=== PATIENT | male | born 1950 | race Caucasian/White ===

== ENCOUNTER 2016-10-10 16:10 | Inpatient (IN) ==
[2016-10-10 17:15] LABS: MANUAL DIFF NEEDED? NO
[2016-10-10 17:21] LABS: BASO% 0.3 % (0.0-0.8); EOS# 0.05 X1000 (0.0-0.7); EOS% 0.7 % (0.0-10.0); HEMATOCRIT 23.2 % (42.0-52.0); IMM GRAN# 0.05 X1000 (0.0-0.04); IMM GRAN% 0.7 % (0.0-0.5); LYMPH# 1.02 X1000 (1.2-3.4); LYMPH% 14.4 % (20.5-51.1); MCH 33.6 PG (27-31); MCHC 34.5 g/dL (33-37); MCV 97.5 FL (81-99); MONO# 0.84 X1000 (0.11-0.59); MONO% 11.9 % (1.7-9.3); MPV 11.6 FL (7.4-10.4); PLT 187 X1000 (130-400); RBC 2.38 XMIL (4.7-6.1)
[2016-10-10 17:35] LABS: INR 1.14 (0.86-1.15); PROTIME 14.9 Seconds (12.1-15.5); PTT PL 24.1 Seconds (22.6-43.9)
[2016-10-10] MEDS ORDERED: PROTONIX IV ONE (17:35)
[2016-10-10] MEDS ORDERED: SODIUM CHLORIDE 0.9% INJ ONE (17:35)
[2016-10-10] MEDS ORDERED: NS 1,000 ML IV ONE ×2 (17:39→18:42)
--- NOTE | 2016-10-10 17:39 | PROVIDER DOCUMENTATION ---
HPI-Abdominal Pain/GI Problem - General Chief Complaint: GI Bleed Stated Complaint: "PASSING BLOOD THROUGH STOOL" Time Seen by Provider: 10/10/16 17:03 Source: patient Allergies/Adverse Reactions: Patient Allergies Allergy/AdvReac Type Severity Reaction Status Date / Time Penicillins Allergy Intermediate SWELLING Verified 04/30/14 17:45 Home Medications: Home Medication List Medication Instructions Recorded Confirmed Last Taken Type Atorvastatin Calcium [Lipitor] 1 tab PO DAILY 04/30/14 04/30/14 1 Day Ago History Metoprolol [Lopressor] 50 mg PO BID 04/30/14 04/30/14 1 Day Ago History RAMIpril [Altace] 5 mg PO DAILY 04/30/14 04/30/14 1 Day Ago History Aspirin 81 mg PO DAILY 10/10/16 10/10/16 Unknown History Primidone [Mysoline] 50 mg PO DAILY 10/10/16 10/10/16 Unknown History - History of Present Illness-ABD Nature of Presenting Problems: Pt is a 65 y/o M c chief compliant of black stool that appears as it has in the past c a GI bleed. Pt has a known h/o GI bleeds secondary to gastric ulcers. He is followed by Dr. Spence (GI). Pt states that 2 weeks ago he pulled a muscle and was prescribed Mobic and a muscle relaxer. Pt states he has felt light headed. On arrival, pt is in minimal distress. Review of Systems - Adult - REVIEW OF SYSTEMS - ADULT Constitutional: reports: no symptoms reported. denies: chills, fatique Eyes: reports: no symptoms reported. denies: blurred vision, double vision Ears, Nose, Mouth & Throat: reports: no symptoms reported. denies: ear pain, nose pain Cardiovascular: reports: no symptoms reported. denies: chest pain, orthopnea Respiratory: reports: no symptoms reported. denies: cough, shortness of breath Gastrointestinal: reports: see HPI, diarrhea, rectal bleeding. denies: abdominal pain, nausea Genitourinary: reports: no symptoms reported. denies: dysuria, hematuria Musculoskeletal: reports: no symptoms reported. denies: joint pain, joint swelling Integumentary: reports: no symptoms reported. denies: hives, itching Neurological: reports: no symptoms reported. denies: numbness, paresthesia Psychiatric: reports: no symptoms reported. denies: anxiety, emotional problems Endocrine: reports: no symptoms reported. denies: cold intolerance, heat intolerance Hematologic/Lymphatic: reports: no symptoms reported. denies: blood clots, low blood count Allergic/Immunologic: reports: no symptoms reported. denies: allergic reactions , food allergy All Other Systems: Reviewed and Negative Past History - Adult - PAST MEDICAL HISTORY-ADULT Review of Records: reports: Old Records Reviewed, Nursing Assessment Review, Medications Reviewed, Social history reviewed & non-contributory. Major Childhood Illnesses: reports: denies history Cardiovascular: reports: CAD, HTN, hyperlipidemia Respiratory: reports: denies history Gastrointestinal: reports: GERD, GI bleed, ulcer Obstetrical/Gynecological: reports: denies history Genitourinary: reports: denies history Musculoskeletal: reports: denies history Neurological: reports: denies history Endocrine/Immune: reports: Diabetes Other Conditions: reports: denies history - PRIOR SURGERIES/PROCEDURES Surgical/Procedure History: reports: CABG, cholecystectomy, cardiac stent, gastric bypass, other (pilonidal cyst removed) - IMMUNIZATION STATUS Childhood Immunizations: UTD Flu Vaccine: NUTD - FAMILY HISTORY Family History: reviewed, not pertinent - SOCIAL HISTORY Smoking: denies Substance Use: none/never Alcohol Use Frequency: never Living Situation: family Physical Exam-General - PHYSICAL EXAM-ADULT Initial Vital Signs Reviewed: Yes - CONSTITUTIONAL General Appearance: alert, no apparent distress - EYES Eyes: PERRL/EOMI, pink conjunctivae - HEAD, EARS, NOSE, MOUTH & THROAT HENMT: normocephalic/atraumatic, moist mucous membranes, normal ENT inspection - NECK Neck: normal inspection - RESPIRATORY Respiratory: chest non-tender, lungs clear, normal breath sounds - CARDIOVASCULAR Cardiovascular: normal peripheral pulses, regular rate, rhythm - GASTROINTESTINAL (ABDOMEN) Abdominal Exam: normal bowel sounds, non tender, soft. negative: no organomegaly, no pulsatile mass, abdominal bruit, abnormal bowel sounds, distended, guarding, rigid, rebound, tenderness, hernia, mass, hepatomegaly, spleenomegaly, McBurney's point tenderness, Matos's sign, obturator sign, prominent aortic pulsations, psoas, Rovsing's sign - LYMPHATIC Lymphatic: no adenopathy - MUSCULOSKELETAL Back Exam: normal inspection, no CVA tenderness, no vertebral tenderness Extremity: normal range of motion, non-tender, normal inspection - SKIN Integumentary: normal color, normal turgor, warm/dry - NEUROLOGIC Neurologic: grossly normal, no motor/sensory deficits - PSYCHIATRIC Psych/Mental Status: normal mood/affect, normal thought content, normal thought process, oriented x 3 Progress - PLAN OF CARE/RESULTS Progress/Plan/Lab Results: Vital Signs - 8 hr 10/10/16 16:32 10/10/16 17:19 Temperature 98 F Pulse Rate 67 Pulse Rate [Sitting] 66 Pulse Rate [Standing] 72 Pulse Rate [Supine] 63 Respiratory Rate 18 Blood Pressure 105/63 Blood Pressure [Sitting] 117/71 Blood Pressure [Standing] 100/67 Blood Pressure [Supine] 120/73 O2 Sat by Pulse Oximetry 100 Laboratory Results - last 24 hr 10/10/16 10/10/16 17:00 17:00 WBC 7.07 RBC 2.38 L Hgb 8.0 L Hct 23.2 L MCV 97.5 MCH 33.6 H MCHC 34.5 RDW Std Deviation 12.1 Plt Count 187 MPV 11.6 H Immature Gran % (Auto) 0.7 H Neut % (Auto) 72.0 Lymph % (Auto) 14.4 L Whiteside % (Auto) 11.9 H Eos % (Auto) 0.7 Baso % (Auto) 0.3 Immature Gran # (Auto) 0.05 H Neut # (Auto) 5.09 Lymph # (Auto) 1.02 L Whiteside # (Auto) 0.84 H Eos # (Auto) 0.05 Baso # (Auto) 0.02 PT 14.9 INR 1.14 Orders Category Date Time Status Saline Loc DIRECTED Care 10/10/16 16:29 Active CBC WITH ELECTRONIC DIFF [HEME] Stat Lab 10/10/16 17:00 Completed COMPREHENSIVE METABOLIC PANEL [CHEM] Stat Lab 10/10/16 17:00 Received OCCULT BLOOD SCREEN STOOL PL Stat Lab 10/10/16 16:29 Uncollected PROTIME WITH INR PL [COAG] Stat Lab 10/10/16 17:[address] [COAG] Stat Lab 10/10/16 17:00 Results TYPE & SCREEN [BBK] Stat Lab 10/10/16 17:00 Received Pantoprazole [Protonix] Med 10/10/16 17:35 Once 40 mg IV NOW ONE Sodium Chloride 0.9% Med 10/10/16 17:35 Once 10 ml INJ NOW ONE Result Diagrams: 06/16/17 17:00 10/10/16 17:00 - CONSULTS/PCP/HOSPITALIST Notification #1 *Consult/PCP/Hospitalist*: Dr. Angeles (GI) Time Discussed: 18:33 Reason/Comments: Admit to [facility], ICU #2 Consult: Eleazar Ellis ([place] Hospitalist) / Dr. Marx ([place] Hospitalist) Time Discussed: 18:40 Reason/Comments: Will accept pt for the ICU. Departure - Departure Date of Disposition Decision: 10/10/16 Time of Disposition Decision: 18:34 DIAGNOSIS: GI bleed due to NSAIDs NSAID induced gastritis Qualifiers: Encounter type: initial encounter Injury intent: accidental or unintentional Qualified Code(s): T39.391A - Poisoning by other nonsteroidal anti-inflammatory drugs [NSAID], accidental (unintentional), initial encounter Disposition: ADMITTED INPATIENT 09 Certified Medical Emergency: Emergent Condition: Stable Referrals and Follow-Ups: None,PCP [Primary Care Provider] - - Critical Care Note This patient required my direct & personal management of CC.: No Attestation - Physician/ FANNY Attestation Patient care was provided by Advanced Practice Provider:: Yes Advanced Practice Provider:: Alec Maria Advanced Practice Provider documentation review:: The Mid-level provider documentation, treatment plan and medical decision making was reviewed by the physician who agrees with all treatment and medical decision making by the MLP.
[2016-10-10 17:49] LABS: AGAP 17; ALBUMIN 4.2 g/dL (3.5-5.0); ALKALINE PHOSPHATASE 63 U/L (32-122); BUN 59 mg/dL (8-22); CALCIUM 9.3 mg/dL (8.8-10.2); CHLORIDE 93 mmol/L (98-107); COSMO 276; GOT 22 U/L (10-34); GPT 13 U/L (10-44); POTASSIUM 4.7 mmol/L (3.5-5.1); SODIUM 128 mmol/L (136-145); TCO2 18 mmol/L (25-35); TOTAL BILIRUBIN < 0.15 mg/dL (0.20-1.00); TOTAL PROTEIN 6.8 g/dL (6.3-8.3)
[2016-10-10 18:24] LABS: OCCULT BLOOD 1 POSITIVE (NEGATIVE)
[2016-10-10] MEDS ORDERED: PROTONIX 80 MG in NS 80 ML IV SCH (18:32)
[2016-10-10 19:56] LABS: HEMATOCRIT 21.6 % (42.0-52.0); HEMOGLOBIN 7.4 g/dL (14.0-18.0)
[2016-10-10] MEDS ORDERED: ZOFRAN IV PRN (21:32)
--- NOTE | 2016-10-10 21:54 | HISTORY AND PHYSICAL ---
CHIEF COMPLAINT: Dark stools for 3 days. PRIMARY CARE PHYSICIANS: Dr. Sourav Singh. HISTORY OF PRESENTING ILLNESS: A 65-year-old male with a history of hypertension, coronary artery disease, hyperlipidemia, peptic ulcer disease who initially presented to [place] emergency department with complaint of dark tarry stools for the past 3 days. He states that he was getting weak at times. He was evaluated in the ER, he was found to be anemic and it was suspected possibly he had an upper GI bleed. Due to lack of subspecialty care, patient was transferred to [facility] ICU for further evaluation, management. At the time of my examination, he denied any headache, vision changes, fevers, chills, chest pain, shortness of breath, hemoptysis or weight changes. States he feels okay now. PAST MEDICAL HISTORY: Includes hypertension, hyperlipidemia, coronary disease, peptic ulcer disease. PAST SURGICAL HISTORY: Coronary bypass, coronary stenting, cholecystectomy. ALLERGIES: Penicillin. CURRENT MEDICATIONS: As listed in the MAR. SOCIAL HISTORY: He is a former smoker. History of alcohol use daily in moderate amount. Denies any illicit drug use. FAMILY HISTORY: Positive for coronary disease in mother and father. REVIEW OF SYSTEMS: Twelve point systems listed as in HPI. Other systems negative. PHYSICAL EXAMINATION: GENERAL: Cooperative, friendly male. He is resting comfortably now. VITAL SIGNS: Temperature 98.0 degrees, pulse 60, respiration 21, blood pressure 140/75, he is saturating 100%. HEENT: Atraumatic, normocephalic. Extraocular movements intact. PERRLA. NECK: Supple. CHEST: Clear to auscultation. CARDIOVASCULAR: Regular rate, rhythm. ABDOMEN: Soft, nontender. Positive bowel sounds. EXTREMITIES: No edema. NEURO: He is awake, alert, oriented x3. : No bladder distention. SKIN: Warm. LABORATORIES AND STUDIES: WBC 7.07, hemoglobin 8.0, hematocrit 23.2, platelets 187,000. Sodium 128, potassium 4.7, chloride 93, CO2 is 18, BUN is 59, creatinine is 1.7, glucose is 143. ASSESSMENT: A 65-year-old male with a history of hypertension, hyperlipidemia, coronary disease, and peptic ulcer disease had presented initially to [place] emergency department with complaint of dark tarry stools for 3 days. He was subsequently transferred to [facility] due to lack of subspecialty care there. The patient will need further GI evaluation. 1. Suspected upper gastrointestinal bleed. 2. History of coronary artery disease. 3. Hyperlipidemia. 4. Hyponatremia. 5. Acute kidney injury. 6. Hypertension. PLAN: 1. We will admit patient to ICU. 2. We will keep patient NPO. 3. Continue with IV fluids. 4. We will type and cross and transfuse 2 units. 5. We will put patient on Protonix drip. 6. We will monitor electrolytes including sodium. 7. We will monitor his renal function. 8. Monitor blood pressure closely. 9. Put patient on DVT prophylaxis with SCD. 10. We will continue to follow and reassess. cc: Ever Marx MD
[2016-10-11] MEDS ORDERED: ZOFRAN IV PRN (04:17)
[2016-10-11] MEDS: PROTONIX 80 MG in NS 80 ML IV SCH ×2 (04:52→16:31)
[2016-10-11] MEDS ORDERED: NS 1,000 ML IV ONE ×2 (05:00→11:28)
[2016-10-11 05:37] LABS: MANUAL DIFF NEEDED? NO
[2016-10-11 06:00] LABS: BASO% 0.2 % (0.0-0.8); EOS# 0.07 X1000 (0.0-0.7); EOS% 1.5 % (0.0-10.0); HEMATOCRIT 25.9 % (42.0-52.0); HEMOGLOBIN 8.5 g/dL (14.0-18.0); IMM GRAN# 0.02 X1000 (0.0-0.04); IMM GRAN% 0.4 % (0.0-0.5); LYMPH# 1.31 X1000 (1.2-3.4); LYMPH% 28.1 % (20.5-51.1); MCH 31.5 PG (27-31); MCHC 32.8 g/dL (33-37); MCV 95.9 FL (81-99); MONO# 0.66 X1000 (0.11-0.59); MONO% 14.1 % (1.7-9.3); NEUT% 55.7 % (42.2-75.2); PLT 155 X1000 (130-400)
[2016-10-11 06:33] LABS: AGAP 15; BUN 32 mg/dL (8-22); CALCIUM 8.5 mg/dL (8.8-10.2); CHLORIDE 105 mmol/L (98-107); COSMO 285; POTASSIUM 4.2 mmol/L (3.5-5.1); SODIUM 139 mmol/L (136-145); TCO2 19 mmol/L (25-35)
[2016-10-11 12:06] LABS: HEMATOCRIT 29.9 % (42.0-52.0); HEMOGLOBIN 10.1 g/dL (14.0-18.0)
--- NOTE | 2016-10-11 13:30 | PROGRESS NOTE ---
DATE: 10/11/2016 SUBJECTIVE: The patient is doing well. He is still having loose tarry stool. No fever. No chills. No nausea, vomiting, or diarrhea. No lightheadedness. Vital signs: Blood pressure 99/65, pulse of 66, respirations 98.6 degrees, sat of 99% on 2 L nasal cannula. General appearance: Thin, white male, in no acute distress. HEENT: Anicteric. Clear conjunctivae. Neck: Supple. No JVD. No bruit. Cardiovascular: S1, S2. Normal rate and rhythm. No murmur, rub, or gallops. Pulmonary: Clear to auscultation bilaterally. GI: Soft, nontender, nondistended. Normoactive bowel sounds. Musculoskeletal: No clubbing, cyanosis, or edema. LABORATORY: His white count is 4.67, hemoglobin 8.5, hematocrit 25.9 after 2 units, platelets 155,000. Chemistry: Sodium 139, potassium 4.2, chloride 102, bicarb 19, BUN 32, creatinine 1.0, glucose 100. ASSESSMENT/PLAN: This is a 65-year-old white male, admitted to the hospital for melena. 1. Melena. Most likely, secondary to upper GI bleed. The patient has a history of peptic ulcer disease. We will keep the patient on Protonix drips for now. We will continue IV fluid. Will increase it to 125 mL/h. Seeing the patient has been hypotensive we will hold his blood pressure medications. 2. Anemia secondary to acute blood loss. Continue to check his hemoglobin and hematocrit and will transfuse as needed to keep his has hemoglobin and hematocrit above 7 and 21. GI is following. His risk factor was taking NSAIDs over the counter. 1. Hyperlipidemia. We will resume his Lipitor once able to take p.o. again. 2. Deep vein thrombosis prophylaxis. Put the patient on SCDs for now. CODE STATUS: The patient is a full code.
--- NOTE | 2016-10-11 18:26 | CONSULTATION ---
DATE OF CONSULTATION: 10/11/2016 PRIMARY CARE PROVIDER: Sourav Singh M.D. PRIMARY HOSPITALIST: Bonilla Cummings M.D. REFERRING PHYSICIAN: Ever Marx M.D. PRIMARY DRILLING PLANT OPERATOR: Dr. Avinash Morales M.D. INDICATION FOR CONSULTATION: 1. Melena. 2. History of peptic ulcer disease. HISTORY OF PRESENT ILLNESS: The patient is a 65-year-old white male who has a history of peptic ulcer disease, hypertension, coronary artery disease and hyperlipidemia. He states that he was recently treated by Dr. Avinash Morales for a gastric ulcer. He injured his back and was seen by a free standing medical clinic where he was placed on Mobic for pain control. He was on Mobic for a few days when he began having melenic stools. He reports that he presented to the emergency room when he became too weak to stand. In the emergency room on rectal exam he had a large volume melenic bowel movement. He denies other symptoms stating that he is ready to eat and ready to go home. PAST MEDICAL HISTORY: 1. Hypertension. 2. Hyperlipidemia. 3. Coronary artery disease. 4. Peptic ulcer disease. 5. NSAID use. PAST SURGICAL HISTORY: 1. Coronary artery bypass. 2. Coronary stenting. 3. Cholecystectomy. MEDICATION ALLERGIES: Penicillin. HOME MEDICATIONS: 1. Aspirin. 2. Primidone. 3. Ramipril. 4. Metoprolol. 5. Atorvastatin. 6. Mobic. SOCIAL HISTORY: The patient is a former smoker. He drinks alcohol on a daily basis but denies illicit drug use. He is rather evasive when trying to determine the quantity of alcohol intake. FAMILY HISTORY: Positive for coronary artery disease in both parents. REVIEW OF SYSTEMS: The patient states that he feels fine and wants to go home and have his EGD done as an outpatient. However, after discussion with his son, nursing staff and the hospitalist service, he has agreed to stay until Thursday. Since admission, he reports feeling better with less fatigue. His diarrhea volume has decreased from multiple bowel movements per day to 1 bowel movement. He is currently on a Protonix drip. PHYSICAL EXAM: General: White male in no acute distress. Vital Signs: His blood pressure is 99/65, pulse 66, respirations 16, temperature of 98.6 degrees. HEENT: Negative for jaundice. His conjunctivae are pale. His oropharyngeal mucosa membranes are unremarkable. Pulmonary: His lungs are clear to auscultation with normal respiratory effort. Cardiovascular Exam: Reveals regular rate and rhythm with no murmurs, gallops, or rubs. Abdominal Exam: Reveals normoactive bowel sounds. The abdomen is soft, nontender with no rebound or guarding. Extremities: Bilaterally are negative for cyanosis, clubbing, or edema. Neurologic: He is alert and oriented x3. OBJECTIVE DATA: Remarkable for hemoglobin on admission of 7.4 with hematocrit of 21.6 and white count of 7.03. On admission he had 187,000 platelets. Posttransfusion his hemoglobin is 10.1 with hematocrit of 29.9 and a white count of 4.67. He has 155,000 platelets. Sodium is 139, potassium 4.2, chloride 105, CO2 19, BUN 32, creatinine 1.0 with a glucose of 100. His calcium is 8.5. On admission, his liver function tests were normal. IMPRESSION: 1. Melena. 2. Nonsteroidal anti-inflammatory drug use. 3. Known history of peptic ulcer disease. 4. Anemia. RECOMMENDATION: 1. Continue Protonix drip as discussed with the hospitalist service. 2. Transfuse as indicated. 3. He will need EGD. I will defer to Dr. Aviansh Morales with regard to scheduling. 4. I will place him on the schedule for Dr. Morales to perform his EGD on Thursday. 5. He may have a clear liquid diet. I would not advance his diet beyond clear liquids until he has had endoscopic evaluation. 6. Dr. Morales will assume care on Thursday. cc: Avinash Morales MD [facility]
[2016-10-11] MEDS: CARAFATE LIQUID PO SCH (20:05)
[2016-10-12] MEDS: PROTONIX 80 MG in NS 80 ML IV SCH ×3 (01:21→20:39)
[2016-10-12] MEDS: CARAFATE LIQUID PO SCH ×4 (02:00→20:39)
[2016-10-12 03:40] LABS: MANUAL DIFF NEEDED? NO
[2016-10-12 03:56] LABS: BASO% 0.1 % (0.0-0.8); EOS# 0.03 X1000 (0.0-0.7); EOS% 0.4 % (0.0-10.0); HEMATOCRIT 24.5 % (42.0-52.0); HEMOGLOBIN 8.1 g/dL (14.0-18.0); IMM GRAN# 0.04 X1000 (0.0-0.04); IMM GRAN% 0.6 % (0.0-0.5); LYMPH# 1.39 X1000 (1.2-3.4); LYMPH% 19.9 % (20.5-51.1); MCH 32.1 PG (27-31); MCHC 33.1 g/dL (33-37); MCV 97.2 FL (81-99); MONO# 0.81 X1000 (0.11-0.59); MONO% 11.6 % (1.7-9.3); MPV 11.7 FL (7.4-10.4); NEUT% 67.4 % (42.2-75.2); PLT 166 X1000 (130-400); RBC 2.52 XMIL (4.7-6.1)
[2016-10-12 04:29] LABS: AGAP 14; BUN 37 mg/dL (8-22); CALCIUM 8.3 mg/dL (8.8-10.2); CHLORIDE 112 mmol/L (98-107); COSMO 301; POTASSIUM 5.1 mmol/L (3.5-5.1); SODIUM 146 mmol/L (136-145); TCO2 20 mmol/L (25-35)
--- NOTE | 2016-10-12 08:28 | PROGRESS NOTE ---
DATE: 10/12/2016 SUBJECTIVE: The patient had nausea and vomiting all night last night but none this morning. He has mild abdominal discomfort. No bowel movement. No melena overnight. PHYSICAL EXAMINATION: Vital Signs: Blood pressure is 142/81, pulse of 105, respirations 23, temperature of 97.5 degrees, saturation of 96% on room air. General Appearance: Thin, white male, in moderate distress. HEENT: Anicteric sclerae. Clear conjunctivae. Neck: Supple. No JVD. No bruit. Cardiovascular: S1 and S2. Normal rate and rhythm. No murmur, rubs, or gallops. Pulmonary: Clear to auscultation bilaterally. GI: Soft, nontender, nondistended. Normoactive bowel sounds. Musculoskeletal: No clubbing, cyanosis, or edema. LABORATORY: Today, his white count is 6.98, hemoglobin 8.1, hematocrit of 24.5, platelets of 166,000. Chemistry: Sodium 146, potassium 5.1, chloride 112, bicarb 20, BUN 37, creatinine 0.7, glucose of 128. ASSESSMENT AND PLAN: This is a 65-year-old, white male admitted to the hospital for melena. He has a history of peptic ulcer disease. 1. Melena, probably secondary to upper gastrointestinal bleed. We will monitor his hemoglobin and hematocrit every 8 hours, and we will transfuse as needed. We will keep the patient in the intensive care unit. He is on a Protonix drip. Gastroenterology saw the patient and recommended an EGD tomorrow. Keep the patient on a clear liquid diet for now. 2. Hypertension and tachycardia. Put him back on his Lopressor. Keep the patient on intravenous fluid. We will continue to monitor the patient. 3. Anemia due to acute blood loss. Transfuse as needed. 4. Code status. The patient is a full code.
[2016-10-12] MEDS: LOPRESSOR PO SCH ×2 (08:31→20:39)
[2016-10-12] MEDS: NS 1,000 ML IV SCH ×2 (08:32→14:34)
[2016-10-12 12:05] LABS: HEMATOCRIT 21.8 % (42.0-52.0); HEMOGLOBIN 7.2 g/dL (14.0-18.0)
--- NOTE | 2016-10-12 21:42 | PROGRESS NOTE ---
DATE: 10/12/2016 SUBJECTIVE: The patient had nausea and vomiting overnight. He is anxious to undergo an EGD. He reports resolution of the melena and currently has had no bowel movements today. His abdominal pain is significantly better since he has been placed on a Protonix drip and Carafate. OBJECTIVE: His blood pressure is 148/88, pulse is 75, respiration 18, temperature of 98.2 degrees. His abdomen is soft with minimal tenderness in the epigastrium. OBJECTIVE DATA: Reveals a hemoglobin of 8.1 with hematocrit of 25.4 and a white count of 6.98. His platelet count is 166,000. His sodium is 146, potassium 5.1, chloride 112, CO2 20, BUN 37, creatinine 0.7, glucose of 128 and calcium of 8.3. IMPRESSION: 1. Melena. 2. Nonsteroidal anti-inflammatory drug use. 3. History of peptic ulcer disease. 4. Anemia. RECOMMENDATION: 1. Patient is on the schedule for an EGD by Dr. Avinash Morales or Dr. Eleazar Rod. 2. Continue Protonix drip as you are doing. 3. Continue Carafate suspension as you are doing. 4. Transfuse as indicated. 5. Dr. Rod or Carmen will assume care in the morning. cc: Eleazar Rod MD
[2016-10-13 00:13] LABS: HEMATOCRIT 26.7 % (42.0-52.0); HEMOGLOBIN 8.9 g/dL (14.0-18.0)
[2016-10-13] MEDS: NS 1,000 ML IV SCH ×3 (00:46→17:58)
[2016-10-13] MEDS: CARAFATE LIQUID PO SCH ×4 (02:01→20:02)
[2016-10-13 04:07] LABS: HEMATOCRIT 25.3 % (42.0-52.0); HEMOGLOBIN 8.4 g/dL (14.0-18.0)
[2016-10-13 06:10] LABS: BASO% 0.4 % (0.0-0.8); EOS# 0.14 X1000 (0.0-0.7); EOS% 2.6 % (0.0-10.0); HEMATOCRIT 24.8 % (42.0-52.0); LYMPH# 1.24 X1000 (1.2-3.4); LYMPH% 23.4 % (20.5-51.1); MCH 30.5 PG (27-31); MCHC 32.3 g/dL (33-37); MCV 94.7 FL (81-99); MONO# 0.63 X1000 (0.11-0.59); MONO% 11.9 % (1.7-9.3); MPV 11.3 FL (7.4-10.4); NEUT% 61.7 % (42.2-75.2); PLT 114 X1000 (130-400); RBC 2.62 XMIL (4.7-6.1)
[2016-10-13 06:17] LABS: AGAP 10; BUN 18 mg/dL (8-22); CALCIUM 6.8 mg/dL (8.8-10.2); CHLORIDE 116 mmol/L (98-107); COSMO 286; POTASSIUM 3.4 mmol/L (3.5-5.1); SODIUM 143 mmol/L (136-145); TCO2 17 mmol/L (25-35)
--- NOTE | 2016-10-13 06:49 | EKG Report ---
Test Performed on : 10/11/2016 11:04:28 PM Test Reason : ELEVATED HR, Blood Pressure : / mmHG Vent. Rate : 099 BPM Atrial Rate : 099 BPM P-R Int : 146 ms QRS Dur : 076 ms QT Int : 338 ms P-R-T Axes : 029 022 056 degrees QTc Int : 433 ms Normal sinus rhythm. Nonspecific ST abnormality Abnormal ECG When compared with ECG of 30-APR-2014 17:19, ST now depressed in Anterolateral leads Confirmed by Frandy GARCIA, Mika Reynoso ([id number]) on 10/21/2016 2:12:57 PM
[2016-10-13] MEDS ORDERED: CALCIUM GLUCONATE 1 GM in NS 50 ML IV ONE (07:27)
[2016-10-13 09:03] LABS: INR 1.04; PTT 22.7 Seconds (22.0-36.0)
[2016-10-13] MEDS ORDERED: EPINEPHRINE SYRINGE ONE (09:26)
[2016-10-13] MEDS ORDERED: DIPRIVAN 1% ONE ×2 (09:55→09:56)
[2016-10-13 10:50] LABS: MANUAL DIFF NEEDED? NO
[2016-10-13 11:20] LABS: BASO% 0.3 % (0.0-0.8); EOS# 0.14 X1000 (0.0-0.7); EOS% 1.8 % (0.0-10.0); HEMATOCRIT 25.9 % (42.0-52.0); HEMOGLOBIN 8.6 g/dL (14.0-18.0); IMM GRAN# 0.02 X1000 (0.0-0.04); IMM GRAN% 0.3 % (0.0-0.5); LYMPH# 1.07 X1000 (1.2-3.4); LYMPH% 14.1 % (20.5-51.1); MCH 30.3 PG (27-31); MCHC 33.2 g/dL (33-37); MCV 91.2 FL (81-99); MONO# 0.65 X1000 (0.11-0.59); MONO% 8.6 % (1.7-9.3); MPV 11.2 FL (7.4-10.4); NEUT% 74.9 % (42.2-75.2); PLT 129 X1000 (130-400); RBC 2.84 XMIL (4.7-6.1)
[2016-10-13] MEDS: PROTONIX 80 MG in NS 80 ML IV SCH ×2 (11:36→17:58)
--- NOTE | 2016-10-13 11:38 | OPERATIVE NOTE ---
PROCEDURE DATE: 10/13/2016 REFERRING PHYSICIAN: Shan Leary MD PRIMARY PHYSICIAN: Sourav Singh MD PREOPERATIVE DIAGNOSES: 1. Gastrointestinal bleed and melena, going on for the last 3 days. He required 4 units of blood transfusion over the weekend. 2. Continues to be anemic with hematocrit drop to 21%. 3. History of use of aspirin at home for prophylaxis. 4. History of use of nonsteroidal anti-inflammatory drugs like chronic Aspirin for CAD and Mobic for back pain. 5. Previous history of peptic ulcer disease. POSTOPERATIVE DIAGNOSES: 1. Esophagitis, gastroesophageal junction. 2. Z-line visualized at 36 cm. 3. Evidence of hiatal hernia, 3 cm, sliding type. 4. Evidence of fresh and old blood in the entire stomach, which was suctioned out. There were some clots in the stomach, which could not be completely cleared. The stomach revealed a normal fundus, cardia, and incisura. There was evidence of gastritis in the antrum. 5. Evidence of a large clot in the duodenal bulb, which was cleared and there was evidence of ulcer at the apex of the duodenal bulb with a visible vessel. This was treated with epinephrine 2.5 mL in 3 quadrants, followed by black wire cautery. 6. Normal second portion of duodenum with some fresh and old blood noted in the second portion of the duodenum. PROCEDURE PERFORMED: Esophagogastroscopy with hemostasis. PROVIDER: Eleazar Rod MD ESTIMATED BLOOD LOSS: About 5 mL. SPECIMENS: None. DESCRIPTION OF PROCEDURE: After informed consent from the patient, explaining the risks, benefits, indications, and alternatives, the patient was prepared for EGD. The risks of the procedure include infection, bleeding, pain, trauma to the surrounding structures, perforation, and , were explained to the patient, among others. He acknowledged understanding and agreed to proceed with the procedure. The patient was brought to the OR. He was turned into the left lateral position. A bite block was placed in the patient's mouth. After adequate monitored anesthesia care, the upper scope was gently introduced through the oral vestibule all the way to the second portion of the duodenum. The esophagus was normal in the proximal and middle thirds. The distal esophagus showed evidence of Z-line at 36 cm and evidence of esophagitis at the GE junction. There was evidence of a 3 cm sliding hiatal hernia. The stomach showed evidence of fresh and old blood with clots, which was cleared out to the best possible ability. Some clots could not be cleared. There was evidence of underlying gastritis in the gastric antrum. Retroflexion revealed normal fundus, cardia, and incisura. There was no evidence of any gastric varices or esophageal varices. The duodenal bulb showed evidence of a large clot, which was removed, and there was evidence of an ulcer at the apex of the duodenal bulb with a visible vessel. It also measured about 1 to 1.5 cm. This was treated with epinephrine in 2 and 3 quadrants, followed by black wire cautery. The second portion of the duodenum appeared normal. There was also some evidence of fresh and old blood. The air was aspirated as the scope was withdrawn. The patient is currently being monitored in the OR in stable condition. I discussed the findings with the patient on waking up. RECOMMENDATIONS: 1. The patient will be on Protonix drip for 72 hours. 2. The patient will be on Carafate 1 g every 6 hours for 6 weeks. 3. The patient will avoid any NSAIDs like aspirin and Mobic for now until hematocrit stabilizes. 4. The patient has been losing blood and he has a large ulcer, we will give him 2 units of blood transfusion today. 5. If the patient's hematocrit continues to drop, we will schedule him for EGD tomorrow for a second look. 6. The patient will continue n.p.o. except for ice chips until his hematocrit stabilizes. We also called a surgical consult with Dr. Haynes, whom I called in the OR to look at the ulcer just in case he needs some kind of surgery. 7. Further recommendations pending above. cc: MD Shan Oneal MD David Francis, MD [facility]
[2016-10-13] MEDS: LOPRESSOR PO SCH ×2 (12:44→21:24)
--- NOTE | 2016-10-13 12:56 | PROGRESS NOTE ---
DATE: 10/13/2016 SUBJECTIVE: Patient is resting comfortable in bed. As per family who is at the bedside, no complaints. No melena overnight. OBJECTIVE: Vital Signs: Temperature 98 degrees, heart rate 64, respiratory 15, blood pressure 146/82. O2 saturation 100% on room air. General examination: This is a 65-year-old male, lying in bed, in no acute distress. HEENT: Head is normocephalic, atraumatic. Anicteric sclerae and pale conjunctivae. Mucous membranes moist. Neck: Supple. No JVD noted. No carotid bruits. No lymphadenopathy. No thyromegaly. Cardiovascular: S1, S2 heard. No murmurs, gallops, or rubs. Regular rate and rhythm. Respiratory: Clear bilaterally to auscultation. No work of breathing or using accessory muscles. Abdomen: Soft, nontender to palpation. Nondistended. Bowel sounds present. No organomegaly. Extremities: No clubbing, cyanosis, or edema. Peripheral pulses present in both legs. Patient moves 4 extremities. LABORATORY DATA: White cell count hemoglobin 8.6, hematocrit 25.9. BMP shows calcium 6.8, and then potassium 3.4. ASSESSMENT AND PLAN: 1. Gastrointestinal bleeding. 2. Hypertension. 3. Anemia due to acute blood loss. 4. Code status. Full code. 5. The patient has been taken to the OR today where they found a large clot in the duodenal bowel and also evidence of fresh and old blood clot in her stoma. At this time, we plan to keep this patient in the unit because of high risk of bleeding. The patient is going to get 2 units of blood. In total, he has received 6 units of blood. If this patient continues to bleed, probably will need surgical consultation. Dr. Rod has already talked with Dr. Haynes regarding this problem. At this time we are going to continue checking hemoglobin and hematocrit every 6 hours. We will check also BMP. 6. For hypertension, we will continue with home medications. 7. Code status. Full code. cc: Poncho Donohue MD
[2016-10-13] MEDS ORDERED: VITAMIN K 10 MG in NS 50 ML IV ONE (13:06)
[2016-10-13] MEDS: M.V.I.-12 10 ML, FOLIC ACID 1 MG, MAGNESIUM SULFATE 1 GM, THIAMINE 100 MG in NS 1,000 ML IV SCH (13:57)
[2016-10-13 18:28] LABS: MANUAL DIFF NEEDED? NO
[2016-10-13] MEDS ORDERED: PROTONIX IV SCH ×2 (18:32)
[2016-10-13 18:41] LABS: BASO% 0.2 % (0.0-0.8); EOS# 0.12 X1000 (0.0-0.7); EOS% 1.9 % (0.0-10.0); HEMATOCRIT 31.1 % (42.0-52.0); HEMOGLOBIN 10.6 g/dL (14.0-18.0); IMM GRAN# 0.04 X1000 (0.0-0.04); IMM GRAN% 0.6 % (0.0-0.5); LYMPH# 1.17 X1000 (1.2-3.4); LYMPH% 18.8 % (20.5-51.1); MCH 29.9 PG (27-31); MCHC 34.1 g/dL (33-37); MCV 87.9 FL (81-99); MONO# 0.55 X1000 (0.11-0.59); MONO% 8.8 % (1.7-9.3); MPV 11.1 FL (7.4-10.4); NEUT% 69.7 % (42.2-75.2); PLT 120 X1000 (130-400); RBC 3.54 XMIL (4.7-6.1)
[2016-10-13] MEDS: ICAR-C PO SCH (21:24)
[2016-10-13 21:55] LABS: MANUAL DIFF NEEDED? NO
[2016-10-13 21:57] LABS: BASO% 0.1 % (0.0-0.8); EOS# 0.16 X1000 (0.0-0.7); EOS% 2.1 % (0.0-10.0); HEMATOCRIT 29.8 % (42.0-52.0); HEMOGLOBIN 10.3 g/dL (14.0-18.0); IMM GRAN# 0.03 X1000 (0.0-0.04); IMM GRAN% 0.4 % (0.0-0.5); LYMPH# 1.64 X1000 (1.2-3.4); LYMPH% 21.4 % (20.5-51.1); MCH 30.2 PG (27-31); MCHC 34.6 g/dL (33-37); MCV 87.4 FL (81-99); MONO# 0.73 X1000 (0.11-0.59); MONO% 9.5 % (1.7-9.3); MPV 10.8 FL (7.4-10.4); NEUT% 66.5 % (42.2-75.2); PLT 125 X1000 (130-400); RBC 3.41 XMIL (4.7-6.1)
[2016-10-14 02:12] LABS: MANUAL DIFF NEEDED? NO
[2016-10-14 02:13] LABS: BASO% 0.3 % (0.0-0.8); EOS# 0.18 X1000 (0.0-0.7); EOS% 2.3 % (0.0-10.0); HEMATOCRIT 30.1 % (42.0-52.0); HEMOGLOBIN 10.5 g/dL (14.0-18.0); IMM GRAN# 0.03 X1000 (0.0-0.04); IMM GRAN% 0.4 % (0.0-0.5); LYMPH% 20.2 % (20.5-51.1); MCH 30.4 PG (27-31); MCHC 34.9 g/dL (33-37); MCV 87.2 FL (81-99); MONO# 0.66 X1000 (0.11-0.59); MONO% 8.3 % (1.7-9.3); MPV 10.7 FL (7.4-10.4); NEUT% 68.5 % (42.2-75.2); PLT 128 X1000 (130-400); RBC 3.45 XMIL (4.7-6.1)
[2016-10-14] MEDS: NS 1,000 ML IV SCH ×3 (02:37→22:25)
[2016-10-14] MEDS: CARAFATE LIQUID PO SCH ×4 (02:37→20:45)
[2016-10-14 06:19] LABS: MANUAL DIFF NEEDED? NO
[2016-10-14 06:32] LABS: BASO% 0.1 % (0.0-0.8); EOS# 0.16 X1000 (0.0-0.7); EOS% 2.1 % (0.0-10.0); HEMATOCRIT 30.3 % (42.0-52.0); HEMOGLOBIN 10.5 g/dL (14.0-18.0); IMM GRAN# 0.02 X1000 (0.0-0.04); IMM GRAN% 0.3 % (0.0-0.5); LYMPH# 1.28 X1000 (1.2-3.4); LYMPH% 16.8 % (20.5-51.1); MCH 30.3 PG (27-31); MCHC 34.7 g/dL (33-37); MCV 87.6 FL (81-99); MONO# 0.67 X1000 (0.11-0.59); MONO% 8.8 % (1.7-9.3); MPV 11.2 FL (7.4-10.4); NEUT% 71.9 % (42.2-75.2); PLT 124 X1000 (130-400); RBC 3.46 XMIL (4.7-6.1)
[2016-10-14 07:03] LABS: AGAP 12; BUN 11 mg/dL (8-22); CHLORIDE 111 mmol/L (98-107); COSMO 284; SODIUM 143 mmol/L (136-145); TCO2 20 mmol/L (25-35)
[2016-10-14] MEDS: ICAR-C PO SCH ×2 (08:46→20:45)
[2016-10-14] MEDS: LOPRESSOR PO SCH ×3 (08:46→22:28)
[2016-10-14 09:56] LABS: MANUAL DIFF NEEDED? NO
[2016-10-14 10:04] LABS: BASO% 0.1 % (0.0-0.8); EOS# 0.19 X1000 (0.0-0.7); EOS% 2.6 % (0.0-10.0); HEMATOCRIT 31.8 % (42.0-52.0); HEMOGLOBIN 10.9 g/dL (14.0-18.0); IMM GRAN# 0.02 X1000 (0.0-0.04); IMM GRAN% 0.3 % (0.0-0.5); LYMPH# 1.05 X1000 (1.2-3.4); LYMPH% 14.4 % (20.5-51.1); MCHC 34.3 g/dL (33-37); MCV 87.6 FL (81-99); MONO# 0.61 X1000 (0.11-0.59); MONO% 8.4 % (1.7-9.3); MPV 11.2 FL (7.4-10.4); NEUT% 74.2 % (42.2-75.2); PLT 132 X1000 (130-400); RBC 3.63 XMIL (4.7-6.1)
[2016-10-14] MEDS: POTASSIUM CHLORIDE 20 MEQ/SWI 20 MEQ/100 ML IVPB IV SCH ×2 (10:07→12:19)
--- NOTE | 2016-10-14 10:57 | PROGRESS NOTE ---
DATE: 10/14/2016 SUBJECTIVE: Patient is resting in the bed. Denies any vomiting blood or black stools. Yesterday, he had an episode of black stool but not today. No dizziness. No chest pain. No shortness of breath. OBJECTIVE: Vital Signs: Temperature 97.4 degrees, heart rate 58, respiratory rate 20, blood pressure of 143/58, O2 saturation 99% on room air. General Examination: This is a 65-year-old, male, lying in bed, in no acute distress. HEENT: Head is normocephalic and atraumatic. Anicteric sclerae and pale conjunctivae. Mucous membranes moist. Neck: Supple. No JVD noted. No carotid bruits. No lymphadenopathy. No thyromegaly. Cardiovascular Examination: S1 and S2 heard. No murmurs, gallops, or rubs. Regular rate and rhythm. Respiratory Examination: Clear bilaterally to auscultation. No work of breathing or using accessory muscles. Abdomen: Soft, nontender to palpation. Bowel sounds present. No organomegaly. Extremities: No clubbing, cyanosis, or edema. Peripheral pulses present in both legs. Neurological Examination: Patient moves 4 extremities. Alert and oriented x3. Laboratory Data: White cell count 7.61, hemoglobin 10.5, hematocrit 30.3, platelets 124,000. Sodium 143, potassium 3, chloride 111, bicarbonate 20, BUN 11, creatinine 0.6, and calcium 8. ASSESSMENT AND PLAN: 1. Gastrointestinal bleeding secondary to duodenal ulcer. The patient was evaluated by gastroenterology and was scoped yesterday. They found a large duodenal ulcer with fresh and old blood. They tried to cauterize but it was not possible to do it completely. Initially, the plan was to re-scope this patient today and have a surgical consultation. Hemoglobin is stable so far. There were no clinical signs of bleeding. At this point, this patient is more stable so we are going to transfer him out of the unit today. We will continue with the Protonix every 12 hours. 2. Hypertension. Blood pressure is stable. Considering the history of massive bleeding, we are going to keep holding those antihypertensive medications. 3. Anemia due to acute blood loss, stable. He has received 2 units of blood so far. 4. Code status. Full code. cc: Poncho Donohue MD
[2016-10-14 14:34] LABS: MANUAL DIFF NEEDED? NO
[2016-10-14 14:37] LABS: BASO% 0.1 % (0.0-0.8); EOS# 0.15 X1000 (0.0-0.7); EOS% 1.8 % (0.0-10.0); HEMATOCRIT 31.3 % (42.0-52.0); HEMOGLOBIN 10.7 g/dL (14.0-18.0); IMM GRAN# 0.02 X1000 (0.0-0.04); IMM GRAN% 0.2 % (0.0-0.5); LYMPH# 1.11 X1000 (1.2-3.4); LYMPH% 13.3 % (20.5-51.1); MCHC 34.2 g/dL (33-37); MCV 87.7 FL (81-99); MONO# 0.66 X1000 (0.11-0.59); MONO% 7.9 % (1.7-9.3); MPV 10.7 FL (7.4-10.4); NEUT% 76.7 % (42.2-75.2); PLT 124 X1000 (130-400); RBC 3.57 XMIL (4.7-6.1)
[2016-10-14] MEDS: M.V.I.-12 10 ML, FOLIC ACID 1 MG, MAGNESIUM SULFATE 1 GM, THIAMINE 100 MG in NS 1,000 ML IV SCH (14:55)
[2016-10-14 17:47] LABS: MANUAL DIFF NEEDED? NO
[2016-10-14 17:51] LABS: EOS# 0.14 X1000 (0.0-0.7); HEMATOCRIT 30.5 % (42.0-52.0); HEMOGLOBIN 10.4 g/dL (14.0-18.0); LYMPH# 0.96 X1000 (1.2-3.4); LYMPH% 13.8 % (20.5-51.1); MCH 30.2 PG (27-31); MCHC 34.1 g/dL (33-37); MCV 88.7 FL (81-99); MONO# 0.58 X1000 (0.11-0.59); MONO% 8.3 % (1.7-9.3); MPV 11.1 FL (7.4-10.4); NEUT% 75.9 % (42.2-75.2); PLT 119 X1000 (130-400); RBC 3.44 XMIL (4.7-6.1)
[2016-10-14] MEDS: PROTONIX PO SCH (20:45)
[2016-10-14 21:32] LABS: MANUAL DIFF NEEDED? NO
[2016-10-14 21:35] LABS: BASO% 0.1 % (0.0-0.8); EOS# 0.21 X1000 (0.0-0.7); EOS% 3.1 % (0.0-10.0); IMM GRAN# 0.02 X1000 (0.0-0.04); IMM GRAN% 0.3 % (0.0-0.5); MCH 30.5 PG (27-31); MCHC 34.4 g/dL (33-37); MCV 88.6 FL (81-99); MONO# 0.68 X1000 (0.11-0.59); MONO% 10.2 % (1.7-9.3); MPV 11.1 FL (7.4-10.4); NEUT% 68.3 % (42.2-75.2); PLT 140 X1000 (130-400); RBC 3.61 XMIL (4.7-6.1)
[2016-10-15 02:15] LABS: MANUAL DIFF NEEDED? NO
[2016-10-15 02:19] LABS: BASO% 0.3 % (0.0-0.8); EOS# 0.22 X1000 (0.0-0.7); EOS% 3.5 % (0.0-10.0); HEMATOCRIT 28.9 % (42.0-52.0); LYMPH# 1.29 X1000 (1.2-3.4); LYMPH% 20.6 % (20.5-51.1); MCH 30.4 PG (27-31); MCHC 34.6 g/dL (33-37); MCV 87.8 FL (81-99); MONO# 0.55 X1000 (0.11-0.59); MONO% 8.8 % (1.7-9.3); NEUT% 66.8 % (42.2-75.2); PLT 119 X1000 (130-400); RBC 3.29 XMIL (4.7-6.1)
[2016-10-15] MEDS: CARAFATE LIQUID PO SCH ×4 (02:22→20:19)
[2016-10-15 05:21] LABS: MANUAL DIFF NEEDED? NO
[2016-10-15 05:24] LABS: BASO% 0.3 % (0.0-0.8); EOS# 0.22 X1000 (0.0-0.7); EOS% 3.8 % (0.0-10.0); HEMOGLOBIN 9.8 g/dL (14.0-18.0); IMM GRAN# 0.02 X1000 (0.0-0.04); IMM GRAN% 0.3 % (0.0-0.5); LYMPH# 1.06 X1000 (1.2-3.4); LYMPH% 18.3 % (20.5-51.1); MCH 29.9 PG (27-31); MCHC 33.8 g/dL (33-37); MCV 88.4 FL (81-99); MONO# 0.61 X1000 (0.11-0.59); MONO% 10.5 % (1.7-9.3); MPV 10.9 FL (7.4-10.4); NEUT% 66.8 % (42.2-75.2); PLT 123 X1000 (130-400); RBC 3.28 XMIL (4.7-6.1)
[2016-10-15] MEDS: NS 1,000 ML IV SCH ×3 (07:18→22:08)
[2016-10-15 08:33] LABS: AGAP 13; BUN 5 mg/dL (8-22); CALCIUM 7.9 mg/dL (8.8-10.2); CHLORIDE 110 mmol/L (98-107); COSMO 282; POTASSIUM 3.2 mmol/L (3.5-5.1); SODIUM 143 mmol/L (136-145); TCO2 20 mmol/L (25-35)
[2016-10-15] MEDS: LOPRESSOR PO SCH ×2 (08:40→20:19)
[2016-10-15] MEDS: ICAR-C PO SCH ×2 (08:40→20:19)
[2016-10-15] MEDS: PROTONIX PO SCH ×2 (08:41→20:19)
[2016-10-15 11:17] LABS: MANUAL DIFF NEEDED? NO
[2016-10-15 11:28] LABS: BASO% 0.1 % (0.0-0.8); EOS# 0.16 X1000 (0.0-0.7); EOS% 2.4 % (0.0-10.0); HEMATOCRIT 34.8 % (42.0-52.0); HEMOGLOBIN 11.7 g/dL (14.0-18.0); LYMPH# 0.68 X1000 (1.2-3.4); MCHC 33.6 g/dL (33-37); MCV 89.2 FL (81-99); MONO# 0.63 X1000 (0.11-0.59); MONO% 9.3 % (1.7-9.3); MPV 11.1 FL (7.4-10.4); NEUT% 78.2 % (42.2-75.2); PLT 146 X1000 (130-400)
--- NOTE | 2016-10-15 11:31 | PROGRESS NOTE ---
DATE: 10/15/2016 SUBJECTIVE: The patient is resting in bed. No further hematemesis or melena. His son is sitting next. Patient is scheduled for upper GI endoscopy in the event if he has any bleeding. He did not have any overnight. OBJECTIVE: Vital Signs: Temperature 97.4, heart rate 58, respiratory rate 20, blood pressure 140/50, O2 saturation 99% on room air. HEENT: Mild conjunctival pallor. There is no scleral icterus. Neck: Supple. Trachea midline. Heart: Normal first and second heart sounds. Lungs: Clear. Abdomen: Soft. Nontender. Bowel sounds present and normal. Laboratory Data: Hemoglobin 10.5, hematocrit 30.3, platelets of 124,000. The electrolytes are normal. IMPRESSION: 1. Gastrointestinal bleeding secondary to duodenal ulcer, status post cautery. Has not shown any signs of further bleeding. 2. Hypertension. 3. Anemia secondary to blood loss. 4. The patient is stable at this point. He has a history of hypertension but medications were held because of the recent bleed. PLAN: I do not see any further bleeding. We will advance the diet. He should be able to move to the floor and discharge. I will see him as an outpatient in 6 weeks. Considering the size and the depth of the ulcer, he may require a repeat endoscopy to confirm complete healing. cc: Avinash Morales MD
[2016-10-15 13:28] LABS: MANUAL DIFF NEEDED? NO
[2016-10-15 13:50] LABS: BASO% 0.1 % (0.0-0.8); EOS# 0.18 X1000 (0.0-0.7); EOS% 2.7 % (0.0-10.0); HEMATOCRIT 31.6 % (42.0-52.0); HEMOGLOBIN 10.6 g/dL (14.0-18.0); LYMPH# 0.93 X1000 (1.2-3.4); LYMPH% 13.7 % (20.5-51.1); MCH 30.8 PG (27-31); MCHC 33.5 g/dL (33-37); MCV 91.9 FL (81-99); MONO# 0.66 X1000 (0.11-0.59); MONO% 9.7 % (1.7-9.3); NEUT% 73.8 % (42.2-75.2); PLT 135 X1000 (130-400); RBC 3.44 XMIL (4.7-6.1)
[2016-10-15] MEDS: M.V.I.-12 10 ML, FOLIC ACID 1 MG, MAGNESIUM SULFATE 1 GM, THIAMINE 100 MG in NS 1,000 ML IV SCH (14:05)
[2016-10-15] MEDS ORDERED: KLOR-CON PO ONE (15:14)
[2016-10-15] MEDS: ALTACE PO SCH (16:30)
--- NOTE | 2016-10-15 16:41 | PROGRESS NOTE ---
DATE: 10/15/2016 SUBJECTIVE: Patient is resting in bed. He denies any nausea, vomiting, vomiting blood, or passing blood in the stools. He had 1 bowel movement today which was dark in color. He is tolerating his diet well. His hemoglobin and hematocrit is stable so far. He has so far required 6 units blood transfusion since admission. OBJECTIVE: Vital signs: Temperature of 97.6 degrees, pulse of 58, respiratory rate 18, blood pressure 165/81, saturating 100% in room air. Body weight of 147 pounds 1.6 ounces. General appearance: Moderately nourished, lying in bed, in no acute distress. HEENT: Pale pallor. No icterus. Neck: Supple. Abdomen: Soft, nontender, nondistended. Bowel sounds. No rebound. Extremities: No cyanosis, clubbing, and edema. Neurologic: Alert, awake, oriented. LABS: Hemoglobin and hematocrit is 10.6 and 31.6, white count 6.7, platelet count of 135,000, MCV of 91.9. Sodium of 143, potassium 3.2, chloride 110, bicarb 20, anion gap 13, BUN of 5, creatinine 0.6, glucose of 95, calcium is 7.9. IMPRESSION AND PLAN: 1. NSAIDs-induced duodenal ulcer status post cautery. Continue to follow hemoglobin and hematocrit for tomorrow and if it is stable he can be discharged home. 2. Patient will continue on Protonix twice daily for 3 months. 3. The patient will be on Iron C b.i.d. for anemia for 3 months. 4. The patient will follow gastroesophageal reflux life changes. Avoid excessive tea, coffee, soda, tomatoes, onions, spicy, spicy food. The patient was also counseled to quit drinking alcohol completely. 5. The patient will also stay away from NSAIDs. 6. The patient will follow with us in the clinic. At that time, he will decide about repeating EGD. He has seen Dr. Morales in the past as an outpatient. cc: MD Poncho Woodward MD Manish Arora, MD
--- NOTE | 2016-10-15 16:42 | PROGRESS NOTE ---
DATE: 10/15/2016 SUBJECTIVE: Patient reports feeling fine. He had 1 episode of black stools today. No vomiting blood. Not feeling abdominal pain. No nausea or vomiting. OBJECTIVE: Vital Signs: Temperature 97.6 degrees, heart rate 58, respiratory rate 18, blood pressure 165/81, O2 saturation 100% on room air. General Examination: This is a 65-year-old male, lying in bed, in no acute distress. HEENT: Head is normocephalic, atraumatic. Anicteric sclerae. Pale conjunctivae. Mucous membranes moist. Neck: Supple. No JVD noted. No carotid bruits. No lymphadenopathy. No thyromegaly. Cardiovascular: S1 and S2 heard. No murmurs, gallops, or rubs. Regular rate and rhythm. Respiratory: Clear bilaterally to auscultation. No work of breathing or using accessory muscles. Abdomen: Soft. Nontender to palpation. Bowel sounds present. No organomegaly. Extremities: No clubbing, cyanosis, or edema. Peripheral pulses present in both legs. Neurological: Patient is alert and oriented x3. Moves 4 extremities. LABORATORY DATA: Hemoglobin is 10.6 today. The BMP shows potassium 3.7. ASSESSMENT AND PLAN: 1. Gastrointestinal bleeding secondary to duodenal ulcer. The patient had 1 episode of melena today but his hemoglobin is stable so far, so I guess it is a residual to the bleeding that he had that was seen endoscopy. At this time, we are going to watch this patient 1 more day in the hospital and if there are no more signs of bleeding and hemoglobin is stable so far, we may discharge this patient with close followup next week with his GI doctor. 2. Hypertension. Blood pressure is stable. We have restarted ramipril because hemoglobin is stable so far. 3. Anemia due to acute blood loss. Stable because he has received 2 units of blood. 4. Code status. Full code. cc: Poncho Donohue MD
[2016-10-15] MEDS ORDERED: LIPITOR PO SCH (21:00)
[2016-10-16] MEDS: CARAFATE LIQUID PO SCH ×2 (02:07→09:48)
[2016-10-16 06:57] LABS: MANUAL DIFF NEEDED? NO
[2016-10-16 07:03] LABS: BASO% 0.2 % (0.0-0.8); HEMATOCRIT 29.1 % (42.0-52.0); HEMOGLOBIN 9.8 g/dL (14.0-18.0); LYMPH# 0.94 X1000 (1.2-3.4); LYMPH% 18.7 % (20.5-51.1); MCH 30.2 PG (27-31); MCHC 33.7 g/dL (33-37); MCV 89.8 FL (81-99); MONO% 11.9 % (1.7-9.3); MPV 10.9 FL (7.4-10.4); NEUT% 65.2 % (42.2-75.2); PLT 137 X1000 (130-400); RBC 3.24 XMIL (4.7-6.1)
[2016-10-16 07:29] LABS: AGAP 10; BUN 4 mg/dL (8-22); CALCIUM 8.2 mg/dL (8.8-10.2); CHLORIDE 111 mmol/L (98-107); COSMO 284; POTASSIUM 3.3 mmol/L (3.5-5.1); SODIUM 144 mmol/L (136-145); TCO2 23 mmol/L (25-35)
[2016-10-16] MEDS: NS 1,000 ML IV SCH ×2 (07:31→12:19)
[2016-10-16] MEDS: ALTACE PO SCH (09:49)
[2016-10-16] MEDS: ICAR-C PO SCH (09:49)
[2016-10-16] MEDS: PROTONIX PO SCH (09:49)
[2016-10-16] MEDS: LOPRESSOR PO SCH (09:49)
[2016-10-16] MEDS ORDERED: KLOR-CON PO ONE (11:12)
--- NOTE | 2016-10-16 12:14 | PROGRESS NOTE ---
DATE: 10/16/2016 SUBJECTIVE: The patient is resting in bed. He denies any nausea, vomiting, abdominal pain. He had 1 bowel movement today which was dark in color. His hemoglobin and hematocrit are stable for the last 24 hours. He has not required any blood transfusions since 10/13/2016. He is tolerating diet well he wants to go home. PHYSICAL EXAMINATION: Vital Signs: Temperature 98.1 degrees, pulse rate 63, respiratory rate 18, blood pressure 153/76, saturating 100% on room air. General Appearance: Moderately built, moderately nourished, lying in bed, in no acute distress. HEENT: Pale conjunctivae. No icterus. Neck: Supple. Abdomen: Soft, nontender, nondistended. Bowel sounds are noted. No rebound. Extremities: No cyanosis, clubbing, edema. Neurologic: Alert, awake, oriented x3. LABS: Hemoglobin and hematocrit are 9.8 and 29.1, white count of 5.03, platelet count of 137,000, MCV of 89.8. Sodium of 144, potassium 3.3, chloride 101, bicarb 23, anion gap 10, BUN of 4, creatinine 0.6, glucose of 104, calcium is 8.2. IMPRESSION AND PLAN: 1. Nonsteroidal anti-inflammatory drug induced duodenum ulcer, status post cautery. The patient will continue to follow hemoglobin and hematocrit as an outpatient with his primary care doctor. He will continue on Iron C twice a day for 3 months. He will continue multivitamins once daily for 3 months. We will keep him on Protonix twice daily for 3 months. 2. Patient to follow gastroesophageal reflux life changes. The patient will stay away from nonsteroidal anti-inflammatory drugs and alcohol. 3. Patient follow will in the clinic in 4-6 weeks. cc: MD Poncho Oneal MD Babu Kantamneni, MD
[2016-10-16] MEDS: M.V.I.-12 10 ML, FOLIC ACID 1 MG, MAGNESIUM SULFATE 1 GM, THIAMINE 100 MG in NS 1,000 ML IV SCH (12:36)
[2016-10-16 15:28] VITALS: BP 146/75
--- NOTE | 2016-10-16 17:53 | DISCHARGE SUMMARY ---
ADMISSION DATE: 10/10/2016 DISCHARGE DATE: 10/16/2016 DISCHARGE DIAGNOSES: 1. Upper GI bleed. 2. Gastritis. 3. Duodenal ulcer with visible vessel. 4. Anemia associated with hemorrhage. 5. Hypertension. PROCEDURES: 1. Transfusions total of 6 units transfused. 2. EGD per Dr. Rod showing esophagitis. 3. Normal fundus, cardia and incisura and the duodenal bulb ulcer with visible vessel treated with epinephrine and black wire cautery. HISTORY OF PRESENT ILLNESS: Please refer to complete H and P. Briefly, this is a 65-year-old male with history of hypertension and dyslipidemia, who came in with melena. His initial hemoglobin and hematocrit was 8 and 23. Normal platelets with BUN and creatinine of 59 and 1.7. He was placed on IV PPI. He was transfused 2 units. GI was consulted per Dr. Angeles, but he is a patient of Dr. Rod's Dr. Morales. Dr. Rod performed EGD on the which showed the above findings. Again, he had a total of 6 units transfused. He stabilized out further bleeding. He did have some intermittent dark stools but he had been started on iron. Hemoglobin and hematocrit at time of discharge is 9.8 and 29 on admission and had been 8.9 and 26. The patient was clinically stable and felt stable for discharge on the tolerating p.o. without difficulty. DISCHARGE MEDICATIONS: 1. Lipitor 10 daily. 2. Icar-C 1 b.i.d. for [address] Rod. 3. Lopressor 50 b.i.d. 4. Protonix 40 b.i.d. for 3 months. 5. Primidone 50 daily. 6. Ramipril 5 daily. 7. His aspirin will be held for at least a week and recommend he can resume in about a week assuming his blood count has stabilized. FOLLOW UP: He will need to follow up with Dr. Rod concerning biopsy results in a month. DISCHARGE CONDITION: Stable. He will need follow up CBC with Dr. Singh PCP in 1 week and then consideration to start back aspirin. Return for any worsening bleeding. TIME SPENT: This is a greater than 35 minute discharge summary. Additionally, the patient was told to avoid NSAIDs. He had been on Mobic about a week or 2 prior to the initiation to the development of his melena so he was told to avoid NSAIDs and Tylenol was safe. Also, he will have to abstain from alcohol. cc: MD Sourav Pritchard MD Manish Arora, MD
== END 2016-10-16 18:10 | disposition home or self-care (01) ==
LOC: P.ED 16:10 → SUATTDRO 19:08 → ICU 19:08 → 3N 10-15 09:26
PROVIDERS: ATTEND Internal Medicine